=== PATIENT | male | born 1970 | race Caucasian/White ===

== ENCOUNTER 2019-04-29 12:00 | Emergency (ER) | payer OTHER ==
[~2019-04-29] VITALS: Ht 177.8 cm; Wt 90.9 kg
[2019-04-29 12:10] VITALS: Ht 177.8 cm; Wt 90.9 kg
[2019-04-29] MEDS ORDERED: BACLOFEN10 MG PO (12:12)
[2019-04-29] MEDS ORDERED: BUSPIRONE HCL30 MG PO (12:12)
[2019-04-29] MEDS ORDERED: NEURONTIN 300300 MG PO (12:13)
[2019-04-29] MEDS ORDERED: LISINOPRIL20 MG PO (12:13)
[2019-04-29] MEDS ORDERED: HYDROCHLOROTH12.5 M1 PO (12:13)
[2019-04-29] MEDS ORDERED: ATARAX 25 MG TA25 MG PO (12:14)
[2019-04-29] MEDS ORDERED: LANTUS INSULIN10 ML (12:14)
[2019-04-29] MEDS ORDERED: NOVOLOG100 UNIT/1 SC (12:14)
[2019-04-29] MEDS ORDERED: PROTONIX40 MG PO (12:15)
[2019-04-29] MEDS ORDERED: CARAFATE1 G PO (12:15)
[2019-04-29] MEDS ORDERED: GLUCOPHAGE1000 MG PO (12:15)
[2019-04-29] MEDS ORDERED: ZOLOFT100 MG PO (12:15)
[2019-04-29] MEDS ORDERED: AMBIEN10 MG PO (12:16)
[2019-04-29 12:31] LABS: BASOPHILS 0.3 % (0-2); EOSINOPHILS 3.1 % (0-7); HEMATOCRIT 37.8 % (42.0-54.0); HEMOGLOBIN 13.8 g/dL (13.5-17.5); IMMATURE GRANULOCYTES 0.2 % (0-5); LYMPHOCYTES 31.5 % (15-50); MCH 30.8 pg (26.0-34.0); MCHC 36.5 g/dL (31.0-37.0); MCV 84.4 fL (80.0-100.0); MEAN PLATELET VOLUME 9.3 fL (7.4-10.4); MONOCYTES 7.4 % (2-11); NEUTROPHILS 57.5 % (40-80); PLATELET COUNT 238 10x3/uL (130-400); RBC 4.48 10x6/uL (4.20-6.10); RDW 11.6 % (11.5-14.5); WBC 6.5 10x3/uL (4.8-10.8)
[2019-04-29 12:37] LABS: APPEARANCE CLEAR (CLEAR); BILIRUBIN NEGATIVE (NEGATIVE); COLOR YELLOW (YELLOW); GLUCOSE 1000 mg/dL (NEGATIVE); KETONE NEGATIVE (NEGATIVE); NITRITE NEGATIVE (NEGATIVE); PROTEIN NEGATIVE (NEGATIVE); SPECIFIC GRAVITY 1.015 (1.005-1.020); UROBILINOGEN NORMAL (NORMAL)
--- NOTE | 2019-04-29 12:40 | NUR ---
PT STATED THAT HE HAS HAD DEPRESSION SINCE THE AGE OF 25. PT SEES A [facility] THERAP[facility] WHO S[facility] TO THE ED. PT STATED THAT HE HAS NEVER ATTEMPTED SUICIDE BECAUSE HIS MEDICATION HAS ALWAYS WORKED. PT THINKS HE MAY NEED SOME NEW MEDICATIONS DUE TO DEPRESSION GETTING WORSE. PT STATED THAT HE HAS NO TRIGGERS OR FACTORS THAT HAVE INCREASED HIS DEPRESSION. HE STATED "I JUST NEED NEW MEDICATION." REVIEWED SUICIDE PREVENTION RESOURCES. PT STATED THAT HE FEELS SAFE HERE AND DOES CONTRACT FOR SAFETY. PT IS UNSURE ABOUT WHETHER OR NOT HE WANTS TO GO TO A PSYCH UNIT BECAUSE HE FEELS IT MIGHT MAKE HIM WORSE. EXPLAINED TO THE PT THAT A PSYCH UNIT IS THE BEST AND QUICKEST WAY TO GET MEDICATIONS REVIEWED AND CHANGED IF NEEDED. REVIEWED COMMUNICATION WITH PHYSICIAN AND CHARGE NURSE.
[2019-04-29 12:45] LABS: ANION GAP 11.7 mmol/L (8-16); BILIRUBIN - TOTAL 0.72 mg/dL (0.2-1.3); CALCIUM 9.4 mg/dL (8.5-10.1); CARBON DIOXIDE 28.8 mmol/L (21.0-32.0); CREATININE - SERUM 1.3 mg/dL (0.6-1.3); POTASSIUM - SERUM 4.5 mmol/L (3.5-5.1); PROTEIN - SERUM 7.4 g/dL (6.4-8.2)
[2019-04-29 12:48] LABS: UDS - AMPHET NEGATIVE QUAL (NEGATIVE); UDS - BARB NEGATIVE QUAL (NEGATIVE); UDS - BENZO NEGATIVE QUAL (NEGATIVE); UDS - COCAINE NEGATIVE QUAL (NEGATIVE); UDS - OPIATE NEGATIVE QUAL (NEGATIVE); UDS - PCP NEGATIVE QUAL (NEGATIVE); UDS - THC NEGATIVE QUAL (NEGATIVE)
[2019-04-29 20:00] VITALS: BP 122/77
== END 2019-04-29 20:10 ==
LOC: D.ER 12:00
PROVIDERS: Family Medicine
DX: R45.851 Suicidal ideations (principal); F41.9 Anxiety disorder, unspecified; F43.12 Post-traumatic stress disorder, chronic; F32.9 Major depressive disorder, single episode, unspecified